=== PATIENT | male | born 1995 | race Caucasian/White ===

== ENCOUNTER 2019-02-01 11:00 | Inpatient (IN) | payer OTHER ==
[2019-02-01 12:16] VITALS: BMI 19.0
[2019-02-01] MEDS ORDERED: MAGNESIUM CITRATE 300 ML BOTTLE PO PRN (13:16)
[2019-02-01] MEDS ORDERED: guaiFENesin 200 MG/10 ML 10 ML UNIT-DOSE CUPS PO PRN (13:16)
[2019-02-01] MEDS ORDERED: ACETAMINOPHEN 325 MG TABLET (FP) PO PRN (13:16)
[2019-02-01] MEDS ORDERED: MAGNESIUM HYDROX 2400MG/30ML ORAL SUSPENSION 30 ML CUP PO PRN (13:16)
[2019-02-01] MEDS ORDERED: LOPERAMIDE HCL 2 MG CAPSULE PO PRN (13:16)
[2019-02-01] MEDS ORDERED: NICOTINE POLACRILEX 2 MG GUM BUC PRN (13:16)
[2019-02-01] MEDS ORDERED: IBUPROFEN 400 MG TABLET (FP) PO PRN (13:16)
--- NOTE | 2019-02-01 13:16 | HP ---
CIWA Score - Admission Criteria OASAS Guidelines: Admission for Medically Managed Detox: Requires at least one of the followin. CIWA greater than 12 2. Seizures within the past 24 hours 3. Delirium tremens within the past 24 hours 4. Hallucinations within the past 24 hours 5. Acute intervention needed for co occurring medical disorder 6. Acute intervention needed for co occurring psychiatric disorder 7. Severe withdrawal that cannot be handled at a lower level of care (continued vomiting, continued diarrhea, abnormal vital signs) requiring intravenous medication and/or fluids 8. Admission ROS S - HPI Chief Complaint: cocaine and marijuana rehabilitation Allergies/Adverse Reactions: Allergies Allergy/AdvReac Type Severity Reaction Status Date / Time No Known Allergies Allergy Verified 01/26/19 19:11 History of Present Illness: 23 male with hx of marijuana, nicotine and cocaine dependence is here seeking rehabilitation, reports he is mandated by his commercial credit officer. Last rehab treatment at [facility] 2008. PMHX: GERD, Chronic right knee pain reports pending surgery. Psych : hx anxiety reports received treatment in past, no treatment at this time. Denies SI/HI. Denies hx of seizures or blackouts. Exam Limitations: No Limitations - Ebola screening Have you traveled outside of the country in the last 21 days: No Have you had contact with anyone from an Ebola affected area: No - Review of Systems Constitutional: Unintentional Wgt. Loss (25 lbs ib "couple of months") EENT: reports: No Symptoms Reported Respiratory: reports: No Symptoms reported Cardiac: reports: Other (chest pain when anxious, no chest pain at this time) GI: reports: No Symptoms Reported : reports: No Symptoms Reported Musculoskeletal: reports: Joint Pain (right knee pain) Integumentary: reports: No Symptoms Reported Neuro: reports: No Symptoms reported Endocrine: reports: No Symptoms Reported Hematology: reports: No Symptoms Reported Psychiatric: reports: Orientated x3, Anxious Other Systems: Reviewed and Negative Patient History - Patient Medical History Hx Anemia: No Hx Asthma: No Hx Chronic Obstructive Pulmonary Disease (COPD): No Hx Cancer: No Hx Cardiac Disorders: No Hx Congestive Heart Failure: No Hx Hypertension: No Hx Hypercholesterolemia: No Hx Pacemaker: No HX Cerebrovascular Accident: No Hx Seizures: No Hx Dementia: No Hx Diabetes: No Hx Gastrointestinal Disorders: Yes (GERD) Hx Liver Disease: No Hx Genitourinary Disorders: No Hx Sexually Transmitted Disorders: No Hx Renal Disease (ESRD): No Hx Thyroid Disease: No Hx Human Immunodeficiency Virus (HIV): No Hx Hepatitis C: No Hx Depression: No Hx Suicide Attempt: No Hx Bipolar Disorder: No Hx Schizophrenia: No - Patient Surgical History Past Surgical History: No - PPD History Previous Implant?: No Documented Results: Negative w/o proof PPD to be Administered?: Yes - Smoking Cessation Smoking history: Current every day smoker Have you smoked in the past 12 months: Yes Aproximately how many cigarettes per day: 20 Hx Chewing Tobacco Use: No Initiated information on smoking cessation: Yes 'Breaking Loose' booklet given: 02/01/19 - Substance & Tx. History Hx Alcohol Use: No Hx Substance Use: Yes Substance Use Type: Cocaine, Marijuana Hx Substance Use Treatment: Yes ([facility]) - Substances abused Other Other (specify): weed Substance route: Smoking Frequency: Daily Amount used: 5 blunts Age of first use: 12 Date of last use: 01/25/19 Cocaine Substance route: Inhalation Frequency: 1-2 times per week Amount used: 2 grams Age of first use: 21 Date of last use: 01/30/19 Marijuana/Hashish Substance route: Smoking Frequency: Daily Amount used: free Age of first use: 10 Date of last use: 01/31/19 Family Disease History - Family Disease History Family History: Denies Admission Physical Exam [facility] - Vital Signs Vital Signs: Vital Signs - 24 hr 02/01/19 11:58 Temperature 98.1 F Pulse Rate 60 Respiratory 16 Rate Blood Pressure 113/61 - Physical General Appearance: Yes: Appropriately Dressed, Thin, Anxious HEENTM: Yes: EOMI, Hearing grossly Normal, Normal ENT Inspection, Normocephalic , Normal Voice, JANEL, Pharynx Normal, Tm's normal Respiratory: Yes: Chest Non-Tender, Lungs Clear Neck: Yes: Within Normal Limits Breast: Yes: Breast Exam Deferred Cardiology: Yes: Regular Rhythm, Regular Rate Abdominal: Yes: Normal Bowel Sounds, Non Tender, Flat, Soft Genitourinary: Yes: Within Normal Limits Back: Yes: Normal Inspection Musculoskeletal: Yes: full range of Motion, Gait Steady, Pelvis Stable, Other ( right knee pain, no erythema, tenderness or joint effusion , full ROM) Extremities: Yes: Normal Capillary Refill, Normal Inspection, Normal Range of Motion, Non-Tender Neurological: Yes: rn orthopedic II-XII NML intact, Fully Oriented, Alert, Motor Strength 5/5, Normal Response, Depressed Affect Integumentary: Yes: Normal Color, Dry, Warm Lymphatic: Yes: Within Normal Limits - Diagnostic (1) Cocaine dependence Current Visit: Yes Status: Acute Qualifiers: Substance use status: uncomplicated Qualified Code(s): F14.20 - Cocaine dependence, uncomplicated (2) Cannabis dependence Current Visit: Yes Status: Acute (3) Anxiety Current Visit: Yes Status: Acute (4) GERD (gastroesophageal reflux disease) Current Visit: Yes Status: Chronic (5) Chronic pain of right knee Current Visit: Yes Status: Chronic Breathalyzer - Breathalyzer Breathalyzer: 0 Urine Drug Screen - Control Is test valid?: Yes - Results Drug screen NEGATIVE: No Urine drug screen results: THC-Marijuana, MARY-Cocaine Inpatient Rehab Admission - Rehab Decision to Admit Inpatient rehab admission?: Yes - Initial Determination Are CD services needed?: Yes Free of communicable disease: Yes Not in need of hospitalization: Yes - Rehab Admission Criteria Previous failed treatment: Yes Poor recovery environment: Yes Comorbidities: Yes Lacks judgement: Yes Patient is meeting Inpatient Rehab admission criteria:: Yes
[2019-02-01] MEDS ORDERED: TUBERCULIN PPD 5 TU/0.1ML VIAL ID ONE (15:26)
[2019-02-01] MEDS: MAG HYDROX/AL HYDROX/SIMETH 30 ML UNIT-DOSE CUP PO PRN ×2 (15:27→21:54)
[2019-02-01 16:37] LABS: HEMATOCRIT 40.7 % (35.4-49); HEMOGLOBIN 13.8 GM/dL (11.7-16.9); MCH 31.4 pg (25.7-33.7); MEAN CELL VOLUME 92.5 fl (80-96); MEAN PLT VOLUME 8.6 fl (7.5-11.1); PLATELET COUNT 197 K/MM3 (134-434); WHITE BLOOD COUNT 4.5 K/mm3 (4.0-10.0)
[2019-02-01 16:45] LABS: ALBUMIN 4.3 g/dl (3.4-5.0); ALK PHOS 59 U/L (45-117); ANION GAP 5 MMOL/L (8-16); BILIRUBIN,TOTAL 0.5 mg/dL (0.2-1); BLOOD UREA NITROGEN 10 mg/dL (7-18); CALCIUM 9.2 mg/dL (8.5-10.1); CHLORIDE 106 mmol/L (98-107); CO2 30 mmol/L (21-32); CREATININE 0.9 mg/dL (0.55-1.3); GLUCOSE,RANDOM 73 mg/dL (74-106); POTASSIUM 3.9 mmol/L (3.5-5.1); SGOT/AST 17 U/L (15-37); SGPT/ALT 15 U/L (13-61); SODIUM 141 mmol/L (136-145); TOT PROT 7.3 g/dl (6.4-8.2)
[2019-02-01 17:18] LABS: PH,URINE 5.5 (5.0-8.0); URINE APPEARANCE CLEAR; URINE BILIRUBIN NEGATIVE (NEGATIVE); URINE COLOR YELLOW; URINE GLUCOSE (UA) NEGATIVE (NEGATIVE); URINE KETONE TRACE (NEGATIVE); URINE LEUK ESTERASE NEGATIVE (NEGATIVE); URINE NITRITE NEGATIVE (NEGATIVE); URINE PROTEIN NEGATIVE (NEGATIVE)
[2019-02-01] MEDS: THIAMINE HCL 100 MG TABLET (FP) PO SCH (21:53)
[2019-02-02] MEDS: MAG HYDROX/AL HYDROX/SIMETH 30 ML UNIT-DOSE CUP PO PRN ×2 (06:48→21:45)
--- NOTE | 2019-02-02 10:56 | CONSULT ---
[facility] Psychiatric Consult - Data Date of interview: 02/02/19 Admission source: [facility] Identifying data: Patient is a 23 year old male, without children, unemployed, domiciled, and is supported by his spouse. This is patient's first admission to detox at [facility]. Patient admitted to for marijuana and cocaine dependence. Substance Abuse History: - Smoking Cessation. Smoking history: Current every day smoker. Have you smoked in the past 12 months: Yes. Aproximately how many cigarettes per day: 20. Hx Chewing Tobacco Use: No. Initiated information on smoking cessation: Yes. 'Breaking Loose' booklet given: 02/01/19. - Substance & Tx. History. Hx Alcohol Use: No. Hx Substance Use: Yes. Substance Use Type : Cocaine, Marijuana. Hx Substance Use Treatment: Yes ([facility] 2008). - Substances abused. Other. Other (specify): weed. Substance route: Smoking. Frequency: Daily. Amount used: 5 blunts. Age of first use: 12. Date of last use: 01/25/19. Cocaine. Substance route: Inhalation. Frequency: 1-2 times per week. Amount used: 2 grams. Age of first use: 21. Date of last use: 01/30/19. Marijuana/Hashish. Substance route: Smoking. Frequency: Daily. Amount used: free. Age of first use: 10. Date of last use: 01/31/19 Medical History: GERD Psychiatric History: Patient's first psychiatric contact was at 5 years of age to address impusivity, hyperactivity, and aggressive behavior. He was diagnosed with ADHD and prescribed Strattera. He reports consistency with treatment until the age of 12. Before discontinuing treatment, he was diagnosed with bipolar disorder and a learning disability and was also prescribed abilify. Mr. Islas reports one psychiatric hospitalization at [facility] at 14 years of age for aggressive behavior and threatening the staff from [facility] after they arrived to his home. He was admitted for two months and prescribed psychotropic medications although can't recall the names of the medications. He reports receiving outpatient psychiatric care last year at [facility] in [facility] but reports inconsistency with attending his appointments. Mr. Islas is no longer seeing a psychiatrist. He does not accept medications nor is he interested in accepting psychotropic medications. He reports stable mood and states he is sleeping well. No psychotic symptoms noted. Physical/Sexual Abuse/Trauma History: denies. Mental Status Exam - Mental Status Exam Alert and Oriented to: Time, Place, Person Cognitive Function: Good Patient Appearance: Well Groomed Mood: Withdrawn Affect: Mood Congruent Patient Behavior: Fatigued Speech Pattern: Clear Voice Loudness: Normal Thought Process: Goal Oriented Hallucinations: Denies Suicidal Ideation: Denies Homicidal Ideation: Denies Insight/Judgement: Poor Sleep: Fair Appetite: Fair Muscle strength/Tone: Normal Gait/Station: Normal Psychiatric Findings - Problem List (Paul 1, 2,3) (1) ADHD Current Visit: No Status: Chronic (2) Cannabis dependence Current Visit: Yes Status: Acute (3) Cocaine dependence Current Visit: Yes Status: Acute Qualifiers: Substance use status: uncomplicated Qualified Code(s): F14.20 - Cocaine dependence, uncomplicated (4) Substance induced mood disorder Current Visit: Yes Status: Acute - Initial Treatment Plan Initial Treatment Plan: Psychoeducation provided. Rehab in progress. Patient informed that vistaril 50mg will be available for anxiety/irritability and melatonin 5mg is ordered for insomnia. Benefits and sdie effects discussed. Verbal consent given.
[2019-02-02] MEDS: NICOTINE 14 MG/24 HOURS TOPICAL PATCH TD SCH (11:02)
[2019-02-02] MEDS: PRENATAL VITAMINS W/ FOLIC ACID TABLET (FP) PO SCH (11:02)
[2019-02-02] MEDS: PANTOPRAZOLE 20 MG TABLET (FP) PO SCH (11:02)
[2019-02-02] MEDS: THIAMINE HCL 100 MG TABLET (FP) PO SCH (21:45)
[2019-02-03] MEDS: PRENATAL VITAMINS W/ FOLIC ACID TABLET (FP) PO SCH (11:31)
[2019-02-03] MEDS: PANTOPRAZOLE 20 MG TABLET (FP) PO SCH (11:31)
[2019-02-03] MEDS: NICOTINE 14 MG/24 HOURS TOPICAL PATCH TD SCH (11:32)
--- NOTE | 2019-02-03 14:29 | EKG ---
Test Reason : Blood Pressure : / mmHG Vent. Rate : 049 BPM Atrial Rate : 049 BPM P-R Int : 106 ms QRS Dur : 096 ms QT Int : 438 ms P-R-T Axes : 067 081 056 degrees QTc Int : 395 ms SINUS BRADYCARDIA WITH SHORT TX POSSIBLE LATERAL INFARCT , AGE UNDETERMINED ABNORMAL ECG NO PREVIOUS ECGS AVAILABLE Confirmed by MD KOTA, CHELO ([id number]) on 02/03/2019 2:29:20 PM Referred By: Confirmed By:CHELO ESCUDERO MD
[2019-02-03] MEDS: THIAMINE HCL 100 MG TABLET (FP) PO SCH (21:26)
[2019-02-03] MEDS: MELATONIN 5 MG TABLETS PO PRN (21:28)
[2019-02-03] MEDS: hydrOXYzine PAMOATE 50 MG CAPSULE (FP) PO PRN (21:28)
[2019-02-03] MEDS: MENTHOL/PHENOL 1 EACH UD MM PRN (21:29)
[2019-02-03] MEDS: MAG HYDROX/AL HYDROX/SIMETH 30 ML UNIT-DOSE CUP PO PRN (21:30)
[2019-02-04] MEDS: PANTOPRAZOLE 20 MG TABLET (FP) PO SCH (09:10)
[2019-02-04] MEDS: NICOTINE 14 MG/24 HOURS TOPICAL PATCH TD SCH (09:10)
[2019-02-04] MEDS: PRENATAL VITAMINS W/ FOLIC ACID TABLET (FP) PO SCH (09:10)
[2019-02-04] MEDS ORDERED: COLLOIDAL OATMEAL 1 BAR EACH TP PRN (10:39)
[2019-02-04] MEDS: THIAMINE HCL 100 MG TABLET (FP) PO SCH (22:00)
[2019-02-04] MEDS: MAG HYDROX/AL HYDROX/SIMETH 30 ML UNIT-DOSE CUP PO PRN (22:01)
[2019-02-04] MEDS: MELATONIN 5 MG TABLETS PO PRN (22:02)
[2019-02-05] MEDS: PRENATAL VITAMINS W/ FOLIC ACID TABLET (FP) PO SCH (11:04)
[2019-02-05] MEDS: NICOTINE 14 MG/24 HOURS TOPICAL PATCH TD SCH (11:04)
[2019-02-05] MEDS: PANTOPRAZOLE 20 MG TABLET (FP) PO SCH (11:05)
[2019-02-05] MEDS: P-EPHED 60MG/TRIPROLIDI 2.5MG TABLET PO PRN ×2 (14:18→21:48)
[2019-02-05] MEDS: THIAMINE HCL 100 MG TABLET (FP) PO SCH (21:46)
[2019-02-05] MEDS: MAG HYDROX/AL HYDROX/SIMETH 30 ML UNIT-DOSE CUP PO PRN (21:47)
[2019-02-05] MEDS: MENTHOL/PHENOL 1 EACH UD MM PRN (21:47)
[2019-02-06] MEDS: PRENATAL VITAMINS W/ FOLIC ACID TABLET (FP) PO SCH (11:12)
[2019-02-06] MEDS: PANTOPRAZOLE 20 MG TABLET (FP) PO SCH (11:12)
[2019-02-06] MEDS: NICOTINE 14 MG/24 HOURS TOPICAL PATCH TD SCH (11:12)
[2019-02-06] MEDS: MENTHOL/PHENOL 1 EACH UD MM PRN (11:13)
[2019-02-06] MEDS: P-EPHED 60MG/TRIPROLIDI 2.5MG TABLET PO PRN ×2 (11:14→21:57)
[2019-02-06] MEDS: THIAMINE HCL 100 MG TABLET (FP) PO SCH (21:56)
[2019-02-07] MEDS: PRENATAL VITAMINS W/ FOLIC ACID TABLET (FP) PO SCH (09:57)
[2019-02-07] MEDS: NICOTINE 14 MG/24 HOURS TOPICAL PATCH TD SCH (09:57)
[2019-02-07] MEDS: MENTHOL/PHENOL 1 EACH UD MM PRN (09:58)
[2019-02-07] MEDS: PANTOPRAZOLE 20 MG TABLET (FP) PO SCH (09:58)
[2019-02-07] MEDS: P-EPHED 60MG/TRIPROLIDI 2.5MG TABLET PO PRN ×2 (10:01→21:43)
[2019-02-07] MEDS: hydrOXYzine PAMOATE 50 MG CAPSULE (FP) PO PRN (11:21)
[2019-02-07] MEDS: MAG HYDROX/AL HYDROX/SIMETH 30 ML UNIT-DOSE CUP PO PRN (15:49)
[2019-02-07] MEDS: THIAMINE HCL 100 MG TABLET (FP) PO SCH (21:42)
[2019-02-08 07:38] VITALS: BP 118/74; PULSE 71; TEMP 97.6
[2019-02-08] MEDS: PANTOPRAZOLE 20 MG TABLET (FP) PO SCH (10:55)
[2019-02-08] MEDS: PRENATAL VITAMINS W/ FOLIC ACID TABLET (FP) PO SCH (10:55)
[2019-02-08] MEDS: NICOTINE 14 MG/24 HOURS TOPICAL PATCH TD SCH (10:56)
--- NOTE | 2019-02-08 12:34 | PN ---
S Progress Note (SOAP) Subjective: PT REQUESTED TO LEAVE YESTERDAY BUT WAS ENCOURAGED TO SEE HIS COUNSELOR FOR CONTINUED REHAB TREATMENT WITH A REVIEW DATE OF TODAY, 02/08/19. PT GOT VERY AGITATED TODAY AFTER MEETING WITH [employer]ER [employer]ER STATING HE WANTS TO LEAVE BUT WAS TOLD HIS PAROLE NEED TO BE CONTACTED AND STATED 'I DON'T HAVE TO SPEAK TO MY PAROLE. PAROLE DOES NOT HAVE ANYTHING TO DO WITH THIS. MISS, I'M TELLING YOU I HAVE SOMETHING IN MY THROAT AND MY STOMACH BOTHERING ME SINCE 6 MONTHS. TAKE ME TO THE DOCTOR". PT CONTINUED TO WALK UP AND DOWN AND IN AND OUT OF STAFF OFFICES ARGUING LOUDLY AND UNABLE TO BE HEAR WHAT TREATMENT TEAM STAFF IS EXPLAINING TO PT. AFTER TRYING TO CALM PATIENT DOWN AND EXPLAINED TO HIM THAT I HAVE TO ASSESS HIM TO DETERMINE NEXT LINE OF CARE, PT AGREED TO BE EVALUATED BY THIS PROVIDER. PT C/O THROAT STOMACH AND CHEST DISCOMFORT WITH DIZZINESS STATING "I SUFFER FROM REFLUX AND I HAVE BEEN HAVING PROBLEM FOR 6 TO 8 MONTHS. DENIES ANY VISIT TO A DOCTOR ABOUT PROBLEM. REPORTS "MY STOMACH GOT MESSED UP IN DETENTION FROM THE FOOD". PT DENIES NAUSEA, VOMITING OR DIARRHEA TODAY. DENIES LOC. AFEBRILE. PT IS CURRENTLY ON PROTONIX 20 MG PO DAILY AND PT DECLINED ANY EXPLANATION OF DISEASE PROCESS FOR GERD AND RE-EVALUATION FOR MEDICATION MANAGEMENT. Objective: 02/08/19 12:35 PULSE OXIMETER :99% ROOM AIR CARDIAC:S1 S2 ,RRR, NO MURMUR EKG:NORMAL SINUS RHYTHM( MIGUEL ECG MUCH IMPROVED FROM PREVIOUS ECG OF 02/01/19 IN DETOX LUNGS; CTA, NO WHEEZE, NO RHONCHI ABDOMEN:SOFT,NT,(+)BS ALL QUAD. EXTREMITIES:WNL 02/08/19 12:37 02/08/19 12:49 Assessment: 02/08/19 12:35 GERD R/O PATHOLOGY Plan: PLAN:TRANSFER TO [facility] FOR EVALUATION.
--- NOTE | 2019-02-08 13:52 | PN ---
[facility] Progress Note Note: WHILE PT WAS EATING LUNCH IN THE COMMON AREA, PT SAW THIS PLUMBING MECHANIC PASSING ON THE HALLWAY AND CALLED PLUMBING MECHANIC STATING HE WANTS TO CONSIDER TAKING "SOMETHING LIKE ZANTAC" AND STATED HE DOES NOT WANT TO GO TO THE EMERGENCY ROOM ANYMORE OR DISCHARGE TODAY BECAUSE HE WANTS TO STAY IN TREATMENT. PT SIGNED REFUSAL FORM FOR EMERGENCY VISIT(IN PT'S CHART). PLAN:D/C PROTONIX START ZANTAC 150 MG PO BID, FIRST DOSE NOW. PT REMINDED TO INFORM STAFF ABOUT ANY UNUSUAL OR WORSENING SYMPTOMS. TRANSFER TO [facility] ER IF NEEDED.
[2019-02-08] MEDS ORDERED: RANITIDINE HCL 150 MG TABLET (FP) PO ONE (14:00)
--- NOTE | 2019-02-08 16:19 | EKG ---
Test Reason : Blood Pressure : / mmHG Vent. Rate : 063 BPM Atrial Rate : 063 BPM P-R Int : 116 ms QRS Dur : 088 ms QT Int : 396 ms P-R-T Axes : 071 082 060 degrees QTc Int : 405 ms NORMAL SINUS RHYTHM NORMAL ECG WHEN COMPARED WITH ECG OF 01-FEB-2019 13:33, NO SIGNIFICANT CHANGE WAS FOUND Confirmed by MICHAEL HOLLINS MD ([id number]) on 02/08/2019 4:19:13 PM Referred By: Confirmed By:MICHAEL HOLLINS MD
--- NOTE | 2019-02-08 19:44 | PN ---
[facility] Progress Note Note: Discharge from Rehab 5 N. Pt leaving today- states has many family issues that he has to take care of. Has 2 younger siblings at home. he attended groups and felt like he learned a bit about his addictions. Pt has referral to community services. Vital Signs - 24 hr 02/08/19 02/08/19 06:30 07:37 Temperature 97.6 F Pulse Rate 71 Respiratory 18 18 Rate Blood Pressure 118/74 Pt as admitted on 02/01: From Admission Hx: "23 male with hx of marijuana, nicotine and cocaine dependence is here seeking rehabilitation, reports he is mandated by his animal control officer. Last rehab treatment at [facility] 2008. PMHX: GERD, Chronic right knee pain reports pending surgery. Psych : hx anxiety reports received treatment in past, no treatment at this time. Denies SI/HI. Denies hx of seizures or blackouts" - Diagnostic (1) Cocaine dependence Current Visit: Yes Status: Acute Qualifiers: Substance use status: uncomplicated Qualified Code(s): F14.20 - Cocaine dependence, uncomplicated (2) Cannabis dependence Current Visit: Yes Status: Acute (3) Anxiety Current Visit: Yes Status: Acute (4) GERD (gastroesophageal reflux disease) Current Visit: Yes Status: Chronic (5) Chronic pain of right knee Current Visit: Yes Status: Chronic
[2019-02-08] MEDS ORDERED: RANITIDINE HCL 150 MG TABLET (FP) PO SCH (22:00)
== END 2019-02-08 20:11 | disposition home or self-care (01) | DRG 772 ==
LOC: YASAS 11:00 → Y5N 14:04
PROVIDERS: ADMIT Neuromusculoskeletal Medicine & OMM; ATTEND Neuromusculoskeletal Medicine & OMM
PROC: HZ42ZZZ Group Counseling for Substance Abuse Treatment, Cognitive-Behavioral (ICD-10-PCS; principal; 2019-02-01)
DX: F14.20 Cocaine dependence, uncomplicated (principal); F12.20 Cannabis dependence, uncomplicated; F19.24 Other psychoactive substance dependence with psychoactive substance-induced mood disorder; F41.9 Anxiety disorder, unspecified; F90.9 Attention-deficit hyperactivity disorder, unspecified type; K21.9 Gastro-esophageal reflux disease without esophagitis; M25.561 Pain in right knee; G89.29 Other chronic pain
CPT/HCPCS: 36415; 80053; 81003; 85027; 86593; 87389; 93005; 93010